=== PATIENT | female | born 1940 | race Hispanic/Latino ===

== ENCOUNTER → 2024-09-20 | Outpatient (CLI) | payer MEDICARE ==
--- NOTE | 2024-09-20 12:49 | HMCIMG ---
FEMUR 2 VW LEFT REASON: LEFT LEG PAIN TECHNIQUE: 4 views were obtained. FINDINGS: There is no evidence of fracture or dislocation. There is no joint effusion. The soft tissues appear unremarkable. There is no evidence of a radiopaque foreign body. IMPRESSION: No acute findings.
== END | disposition home or self-care (01) ==
LOC: RAH 11:53
PROVIDERS: ATTEND Family Medicine
DX: M79.605 Pain in left leg (principal)
CPT/HCPCS: 73552